=== PATIENT | female | born 1970 | race Caucasian/White ===

== ENCOUNTER 2024-07-10 14:44 | Emergency (ER) | payer BC, SELFPAY ==
[2024-07-10 14:45] VITALS: BP 157/99; PULSE 69; RESP 15; TEMP 36.3; O2SAT 99; BMI 27.1
--- NOTE | 2024-07-10 15:08 | EKG12_ITS ---
Test Reason : CP Blood Pressure : */* mmHG Vent. Rate : 69 BPM Atrial Rate : 69 BPM P-R Int : 170 ms QRS Dur : 82 ms QT Int : 424 ms P-R-T Axes : 18 24 14 degrees QTcB Int : 454 ms Normal sinus rhythm Normal ECG Confirmed by Adam Rodriguez [id number]), brands editor COLETTE SETH ([id number]) on 07/12/2024 10:58:40 AM Referred By: Confirmed By: Adam Rodriguez
--- NOTE | 2024-07-10 15:22 | ED.VIS.CHEST ---
HPI <SULEMAN Mccall - Last Filed: 07/10/24 18:44> History of Present Illness Chief Complaint: Chest Pain Narrative Narrative: 53-year-old female with past medical history of hypertension states about 2 hours ago she was driving and developed waves of left sided chest tightness. The pain was intense for about a minute and then would fade and this occurred about 5 times approximately 10 minutes or more. She states it started to make her feel slightly anxious but she denies being short of breath or having nausea or vomiting. There is no pain in her jaw or arm. No pain in her abdomen or back. She now just has a dull ache in her left lower ribs. She has no personal cardiopulmonary history. She states her mom had some type of heart event in her 40s. Patient has no history of DVT/PE, leg pain or swelling, recent surgery or travel, cough or hemoptysis, or hormone use. [facility] <SULEMAN Mccall Last Filed: 07/10/24 18:44> [facility] Medical History (Updated 07/10/24 @ 19:[address] Stalin Lloyd MD) HTN (hypertension) Allergy/AdvReac Type Severity Reaction Status Date / Time No Known Allergies Allergy Verified 07/10/24 14:47 Social History Smoking Status: Never smoker ROS <SULEMAN Mccall Last Filed: 07/10/24 18:44> ROS ED ROS Narrative Constitutional: Negative for fever, chills, malaise. CVS: Positive for chest pain. Negative for palpitations,syncope. Respiratory: Negative for shortness of breath, cough. GI: Negative for abdominal pain, nausea, vomiting. EXAM <SULEMAN Mccall Last Filed: 07/10/24 18:44> Physical Exam Narrative Exam Narrative: CONST: Patient sitting in no acute distress. EYES: Normal inspection. NECK: Normal inspection. RESP: No respiratory distress, CTAB. CVS: Regular rate and rhythm, no murmur, no gallop. ABD: Soft and nontender, no guarding or rebound, nondistended. SKIN: Color normal, no rash, warm, dry, intact. EXTREMITIES: Normal appearance, no pedal edema. NEURO: Alert and answering questions appropriately. PSYCH: Normal affect. Const Vital Signs: 07/10/24 14:45 07/10/24 15:08 07/10/24 15:44 Temperature 97.4 F L Temperature Source Temporal Pulse Rate 69 68 Respiratory Rate 15 18 Respiratory Effort Blood Pressure 157/99 H 138/99 H Blood Pressure Mean 118 112 Pulse Ox 99 98 Oxygen Delivery Method Room Air Room Air Room Air 07/10/24 16:00 07/10/24 16:06 07/10/24 17:00 Temperature Temperature Source Pulse Rate 64 67 Respiratory Rate 16 16 Respiratory Effort Normal Blood Pressure 138/99 H 126/96 H Blood Pressure Mean 112 106 Pulse Ox 98 98 Oxygen Delivery Method Room Air 07/10/24 18:00 07/10/24 18:51 Temperature 98.2 F Temperature Source Pulse Rate 62 89 Respiratory Rate 15 16 Respiratory Effort Blood Pressure 119/87 H 136/86 H Blood Pressure Mean 97 102 Pulse Ox 98 99 Oxygen Delivery Method Room Air <Dr. Stalin Lloyd MD - Last Filed: 07/10/24 19:40> Physical Exam Const Vital Signs: 07/10/24 14:45 07/10/24 15:08 07/10/24 15:44 Temperature 97.4 F L Temperature Source Temporal Pulse Rate 69 68 Respiratory Rate 15 18 Respiratory Effort Blood Pressure 157/99 H 138/99 H Blood Pressure Mean 118 112 Pulse Ox 99 98 Oxygen Delivery Method Room Air Room Air Room Air 07/10/24 16:00 07/10/24 16:06 07/10/24 17:00 Temperature Temperature Source Pulse Rate 64 67 Respiratory Rate 16 16 Respiratory Effort Normal Blood Pressure 138/99 H 126/96 H Blood Pressure Mean 112 106 Pulse Ox 98 98 Oxygen Delivery Method Room Air 07/10/24 18:00 07/10/24 18:51 Temperature 98.2 F Temperature Source Pulse Rate 62 89 Respiratory Rate 15 16 Respiratory Effort Blood Pressure 119/87 H 136/86 H Blood Pressure Mean 97 102 Pulse Ox 98 99 Oxygen Delivery Method Room Air <SULEMAN Mccall - Last Filed: 07/10/24 18:44> Heart Score History: Slightly/Non-Suspicious ECG: Normal Age: >45 - <65 years Risk Factors: 1 or 2 Risk Factors Troponin: >/=3 x Normal Limit Score: 4 <Dr. Stalin Lloyd MD - Last Filed: 07/10/24 19:40> Heart Score Score: 4 MDM <SULEMAN Mccall - Last Filed: 07/10/24 18:44> [facility] MDM Narrative Medical decision making narrative: 53-year-old female was evaluated after transient episodes of chest pain. She appears well and nontoxic. Vital signs stable. She has a normal cardiopulmonary exam. Abdomen is soft and nontender. Cardiac workup was ordered. CBC and BMP are unremarkable. EKG is sinus rhythm without ischemic changes and serial troponins are 7 and 8 ruling out ACS. Her symptoms have resolved and she has no risk factors for DVT/PE so I do not think a D-dimer is indicated. CXR shows no acute process. I recommended outpatient follow-up and discussed return precautions. She was discharged in stable condition. I have personally performed a face to face assessment of the patient and have reviewed the GABI Note. I performed a substantive portion of the visit including all aspects of the following. My browne findings include: History is remarkable for intermittent chest tightness that came in waves. She had 4-[address]. There was 10 minutes between each episode that lasted approximately 1 minute. She reported possible shortness of breath with diaphoresis. She felt somewhat anxious. She has no known coronary disease. Mother had a cardiac event 20 in her 40s. She does not know exactly what her mother had. She states her mother is . She was a smoker. She quit 20 years ago. She does have history of hypertension. She states her doctor discussed starting her on a statin. She has no known coronary disease. These episodes are occurred while she was driving from [place] to pickling [place] her daughter from the [facility] to go to [place]. She denies history of hiatal hernia, reflux or peptic ulcer disease. She denies history of VTE. Exam is remarkable for an elevated blood pressure of 157/99. HEENT is gross unremarkable. Heart is normal. There is no murmur, gallop or rub. Lungs clear auscultation. She appears in no distress. Medical Decision Making patient with atypical chest pain. Differential would include cardiac versus noncardiac. Noncardiac would include esophageal spasm, she states she ate at approximately [place]. She had toast with cream cheese. She states she is never had pain like this before. Other potential causes are pulmonary, symptoms not consistent with cardiac ischemia or peptic ulcer disease. Her workup included EKG troponin with delta troponin. Clinically she does not appear anemic. She is not on a thiazide diuretic. She is on a calcium channel meena and ARB. Other additions or changes: [None] Lab Data Labs: Laboratory Results - last 24 hr 07/10/24 07/10/24 15:55 17:55 WBC 6.1 RBC 4.36 Hgb 13.6 Hct 39.9 MCV 91.5 MCH 31.2 MCHC 34.1 RDW Std Deviation 41.6 RDW Coeff of Hira 12.5 Plt Count 342 MPV 9.5 Immature Gran % (Auto) 0.300 Neut % (Auto) 72.9 H Lymph % (Auto) 19.3 Jackson % (Auto) 4.3 Eos % (Auto) 2.5 Baso % (Auto) 0.7 Absolute Neuts (auto) 4.4 Absolute Lymphs (auto) 1.17 Nucleated RBC % 0 Sodium 139 Potassium 4.1 Chloride 103 Carbon Dioxide 24.7 Anion Gap 11 BUN 16 Creatinine 0.80 Estim Creat Clear Calc 82.86 Est GFR (MDRD) Non-Af 86 BUN/Creatinine Ratio 19.4 Glucose 100 H Calcium 9.6 Troponin T High Sens 7 Troponin T Hi Sens 2 Hr 8 Radiography Diagnostic Testing: Clinical Impression(s) from Imaging Studies Chest X-Ray 07/10/24 15:40 IMPRESSION: NEGATIVE CHEST. Reading Location: [facility] ED attending interpretation of 2-view chest x-ray shows normal heart size, no acute infiltrate, edema, or effusion. <Dr. Stalin Lloyd MD - Last Filed: 07/10/24 19:40> [facility] MDM Narrative Medical decision making narrative: I have personally performed a face to face assessment of the patient and have reviewed the GABI Note. I performed a substantive portion of the visit including all aspects of the following. My browne findings include: History is remarkable for intermittent chest tightness that came in waves. She had 4-[address]. There was 10 minutes between each episode that lasted approximately 1 minute. She reported possible shortness of breath with diaphoresis. She felt somewhat anxious. She has no known coronary disease. Mother had a cardiac event 20 in her 40s. She does not know exactly what her mother had. She states her mother is . She was a smoker. She quit 20 years ago. She does have history of hypertension. She states her doctor discussed starting her on a statin. She has no known coronary disease. These episodes are occurred while she was driving from [place] to [place] her daughter from the [facility] to go to [place]. She denies history of hiatal hernia, reflux or peptic ulcer disease. She denies history of VTE. Exam is remarkable for an elevated blood pressure of 157/99. HEENT is gross unremarkable. Heart is normal. There is no murmur, gallop or rub. Lungs clear auscultation. She appears in no distress. Medical Decision Making patient with atypical chest pain. Differential would include cardiac versus noncardiac. Noncardiac would include esophageal spasm, she states she ate at approximately [place]. She had toast with cream cheese. She states she is never had pain like this before. Other potential causes are pulmonary, symptoms not consistent with cardiac ischemia or peptic ulcer disease. Her workup included EKG troponin with delta troponin. Clinically she does not appear anemic. She is not on a thiazide diuretic. She is on a calcium channel meena and ARB. Other additions or changes: [None] Lab Data Attestation: I reviewed the patient's lab results. Lab results narrative: CBC is normal. Basic metabolic panel is unremarkable. Glucose is slightly elevated. CO2 anion gap is normal. First troponin is 7. Second troponin is 8 with a delta of 1. These are negative. Patient was discharged to home with appropriate home-going instructions. Labs: Laboratory Results - last 24 hr 07/10/24 07/10/24 15:55 17:55 WBC 6.1 RBC 4.36 Hgb 13.6 Hct 39.9 MCV 91.5 MCH 31.2 MCHC 34.1 RDW Std Deviation 41.6 RDW Coeff of Hira 12.5 Plt Count 342 MPV 9.5 Immature Gran % (Auto) 0.300 Neut % (Auto) 72.9 H Lymph % (Auto) 19.3 Jackson % (Auto) 4.3 Eos % (Auto) 2.5 Baso % (Auto) 0.7 Absolute Neuts (auto) 4.4 Absolute Lymphs (auto) 1.17 Nucleated RBC % 0 Sodium 139 Potassium 4.1 Chloride 103 Carbon Dioxide 24.7 Anion Gap 11 BUN 16 Creatinine 0.80 Estim Creat Clear Calc 82.86 Est GFR (MDRD) Non-Af 86 BUN/Creatinine Ratio 19.4 Glucose 100 H Calcium 9.6 Troponin T High Sens 7 Troponin T Hi Sens 2 Hr 8 Radiography Chest X-Ray - ED: 1 View, Read by ED Physician (Independent reviewed interpreted by me at 1630 is negative.), Normal, Heart, Lungs, Mediastinum, Bony Structures and No Acute Disease (There are no comparison views since patient lives in [place].) Diagnostic Testing: Clinical Impression(s) from Imaging Studies Chest X-Ray 07/10/24 15:40 IMPRESSION: NEGATIVE CHEST. [facility] Triage Chief Complaint: Chest Pain ED Midlevel Provider: Joann Suero ED Provider: Stalin Lloyd Dx/Rx/DC Orders Clinical Impression: Chest pain of uncertain etiology, Elevated blood pressure reading with diagnosis of hypertension Instructions: ED Chest Pain, Uncertain Cause Primary Care Provider: NIGHAT JOSEPH Referrals: NIGHAT JOSEPH [Other] Activity Restrictions/Additional Instructions: Your testing including heart enzymes are in the normal range. I am not sure what caused your pain and recommend close follow-up with your primary care doctor. If you have new or worsening chest pain or shortness of breath please be reevaluated. Print Language: Ghanaian Disposition Disposition: Home, Self Care Discharge Date/Time: 07/10/24 18:52
--- NOTE | 2024-07-10 15:40 | RAD_ITS ---
PROCEDURE: CHEST 1 VIEW (PORTABLE) REASON FOR EXAM: Chest pain TECHNIQUE: Frontal view of the chest. COMPARISON: None FINDINGS: The heart size is normal. The lungs are clear. The bones are unremarkable. RAD/Chest 1 View (Portable) IMPRESSION: NEGATIVE CHEST. Reading [facility]
[2024-07-10 15:44] VITALS: BP 138/99; PULSE 68; RESP 18; O2SAT 98
[2024-07-10 16:00] VITALS: BP 138/99; PULSE 64; RESP 16; O2SAT 98
[2024-07-10] MEDS: Aspirin 81 MG TAB.CHEW 324 MG PO (16:00)
[2024-07-10 16:04] LABS: Absolute Lymphocyte Count 1.17 X10^3/uL (0.83-4.51); Absolute Neutrophil Count 4.4 X10^3/uL (2.0-7.7); Basophil# 0.04 X10^3/uL; Basophil% 0.7 % (0-1); Eosinophil# 0.15 X10^3/uL; Eosinophils% 2.5 % (0-5); Hematocrit 39.9 % (37-47); Hemoglobin 13.6 g/dL (12.0-15.0); Lymphocyte # 1.17 X10^3/ul (0.83-4.51); Lymphocyte % 19.3 % (19-41); Mean Corp Hgb Conc 34.1 g/dL (32-36); Mean Corpuscular Hgb 31.2 pg (27.0-32.0); Mean Corpuscular Volume 91.5 fL (81-99); Mean Platelet Vol. 9.5 fl (6.2-12.0); Monocyte# 0.26 X10^3/uL; Monocyte% 4.3 % (0-10); NRBC Flagged by Analyzer 0 % (0-5); Neutrophil # 4.41 X10^3/uL (2.7-7.7); Neutrophil % 72.9 % (47-70); Platelet Count 342 K/mm3 (150-450); RBC Distribution Width CV 12.5 % (11.6-14.6); RBC Distribution Width SD 41.6 fl (35.1-43.9); Red Blood Count 4.36 M/mm3 (4.2-5.4); White Blood Count 6.1 K/mm3 (4.4-11.0)
--- NOTE | 2024-07-10 16:07 | ED.RN ---
desccribes pain as a heavines that last several seconds
[2024-07-10 16:40] LABS: Anion Gap 11 (5-15); BUN 16 mg/dL (4-19); BUN/Creat Ratio 19.4 RATIO (10-20); Calcium,Total 9.6 mg/dL (7.6-11.0); Carbon Dioxide 24.7 mmol/L (21.0-32.0); Chloride 103 mmol/L (98-108); EST Glomerular Filtration Rate 86 (>60); Estimated Creatinine Clearance 82.86 ml/min (50-250); Glucose 100 mg/dL (70-99); Potassium 4.1 mmol/L (3.3-5.1); Sodium Level 139 mmol/L (133-145); Troponin T High Sensitivity 7 ng/L (<=14)
[2024-07-10 17:00] VITALS: BP 126/96; PULSE 67; RESP 16; O2SAT 98
[2024-07-10 18:00] VITALS: BP 119/87; PULSE 62; RESP 15; O2SAT 98
[2024-07-10 18:35] LABS: Troponin T High Sens 2 HR 8 ng/L (<=14)
[2024-07-10 18:51] VITALS: BP 136/86; PULSE 89; RESP 16; TEMP 36.8; O2SAT 99
== END 2024-07-10 18:52 | disposition home or self-care (01) ==
PROVIDERS: Physician Assistant; Emergency Provider Emergency Medicine; Visit Provider Emergency Medicine
DX: R07.89 Other chest pain (principal); I10 Essential (primary) hypertension
CPT/HCPCS: 71045; 80048; 84484; 85025; 93005; 99284; A4216